=== PATIENT | female | born 1990 | race Caucasian/White ===

== ENCOUNTER 2019-08-01 12:04 | Day surgery (SDC) | payer SELFPAY ==
[2019-07-28 15:46] VITALS: BMI 34.7
[~2019-08-01 12:04] MED LIST: LACTATED RINGERS 1,000 ML IV SCH; LIDOCAINE 1% 20 ML VIAL (10MG/ML) FOR IV START INTRADERMA PRN
[2019-08-01 12:26] VITALS: TEMP 98.4
[2019-08-01] MEDS ORDERED: LIDOCAINE 1% 20 ML VIAL (10MG/ML) FOR IV START SQ ONE (12:33)
[2019-08-01] MEDS ORDERED: PROPOFOL 10 MG/ML 20 ML VIAL IV ONE (12:49)
[2019-08-01] MEDS ORDERED: MIDAZOLAM 2 MG/2 ML VIAL ONE (12:49)
[2019-08-01] MEDS ORDERED: LIDOCAINE 1% INJ 10MG/ML (20 ML MDV) ONE (12:49)
[2019-08-01] MEDS ORDERED: fentaNYL (PF) 50 MCG/ML 2 ML AMP ONE (12:49)
--- NOTE | 2019-08-01 13:23 | P.PCN ---
Date of Procedure: 08/01/19 Description of Procedure: BRIEF HISTORY: Patient is a 29-year-old, pleasant, female presenting for outpatient EGD for evaluation of symptoms of GERD and esophageal dysphagia. Patient reports trial of omeprazole therapy daily in the past with no improvement of symptoms. She also reports intermittent esophageal dysphagia with symptoms of GERD and epigastric pain.. PROCEDURE PERFORMED: Esophagogastroduodenoscopy with biopsy . PREOPERATIVE DIAGNOSIS: GERD, esophageal dysphagia, epigastric pain ESTIMATED BLOOD LOSS: Minimal. IV sedation per anesthesia. PROCEDURE: After informed consent was obtained, the patient was brought into the endoscopy unit. IV sedation was administered by Anesthesia under continuous monitoring. Initially the Olympus GIF-190 video endoscope was inserted into the mouth. Esophagus intubated without any difficulty. It was gradually advanced into the stomach and duodenum and carefully examined. The bulb and the second part of the duodenum appeared normal, With biopsies taken. The scope at this time was withdrawn to the stomach, adequately insufflated with air, and upon careful examination, mucosa of the antrum, body, cardia and the fundus were significant areas of patchy erythema with superficial erosion moderate gastritis with biopsies taken. The scope was then withdrawn into the esophagus. The GE junction was located at 39 cm from the incisors. The esophagus appeared normal, With minimal esophageal biopsies taken. There were no erosions or ulcerations seen and the patient tolerated the procedure well. IMPRESSION: 1. Moderate gastritis antrum and body with biopsies of the antrum and body . 2. Duodenal biopsies. 3. Mid esophageal biopsies. RECOMMENDATIONS: The findings of this examination were discussed with the patient and her . Okay to resume diet. Patient has been prescription for omeprazole 20 mg twice daily. Avoid NSAID use. Await pathology from biopsies.
[2019-08-01] MEDS ORDERED: diphenhydrAMINE 50 MG/ML 1 ML VIAL IVP ONE (13:32)
[2019-08-01 13:39] VITALS: BP 143/95; PULSE 89; RESP 18
== END 2019-08-01 14:26 | disposition home or self-care (01) ==
LOC: ORWHC2ENDO 12:04
PROVIDERS: ATTEND Internal Medicine
DX: K29.50 Unspecified chronic gastritis without bleeding (principal); R13.14 Dysphagia, pharyngoesophageal phase; K21.9 Gastro-esophageal reflux disease without esophagitis; Z79.899 Other long term (current) drug therapy
CPT/HCPCS: 81025; 88305; 43239; J2250; J1200; J2001; J3010; J2704